=== PATIENT | female | born 1985 | race Caucasian/White ===

== ENCOUNTER 2018-06-15 17:47 | Inpatient (IN) ==
[2018-06-18 09:05] VITALS: BP 120/74
== END 2018-06-18 11:05 | disposition home or self-care (01) | DRG 560 ==
LOC: N.LDOUT 17:47 → N.LD 17:48 → N.OB 06-16 14:50
PROVIDERS: ADMIT Obstetrics & Gynecology; ATTEND Obstetrics & Gynecology